=== PATIENT | female | born 1985 | race Caucasian/White ===

== ENCOUNTER 2020-12-27 20:15 | Emergency (ER) | payer OTHER, SELFPAY ==
[2020-12-27 20:18] VITALS: BP 146/76; PULSE 78; RESP 22; TEMP 36.2; O2SAT 100
--- NOTE | 2020-12-27 20:26 | PC.NURSE ---
Pt refused blood draw in triage
--- NOTE | 2020-12-27 20:40 | PC.NURSE ---
Pt up to desk stating she can't wait any longer and she is going to try [facility].
[2020-12-27 20:56] LABS: Add Urine Microscopic? YES; Appearance Urine Cloudy (Clear); Bilirubin Urine 1+ (Negative); Blood Urine 3+ (Negative); Calcium Oxalate Crystals Urine Present /hpf; Color Urine Amber (Yellow); Glucose Urine UA Negative (Negative); Ketones Urine Negative (Negative); Leukocyte Esterase Ur 1+ LEU/UL (Negative); Mucus Urine Few /lpf; Nitrate Urine Negative (Negative); Protein Urine 1+ mg/dL (Negative); RBC Urine 51-75 /hpf (0-2); Specific Grav Ur 1.026 (1.001-1.035); Squamous Epithelial Cell Urine Many /hpf (Few)
== END 2020-12-28 04:43 | disposition left against medical advice (07) ==
LOC: ANHED 20:43
PROVIDERS: Emergency Provider Emergency Medicine
DX: R10.9 Unspecified abdominal pain (principal)
CPT/HCPCS: 81001; 81025; 87086; 87088; 99199

== ENCOUNTER 2023-05-06 18:09 | Emergency (ER) | payer OTHER, SELFPAY ==
--- NOTE | ~2023-05-06 | CT_ITS ---
EXAMINATION: CT soft tissue neck wo con DATE: 05/06/2023 21:43 INDICATION: Left facial soft tissue swelling. Neck pain. TECHNIQUE: Computed tomography (CT) of the facial bones and maxillofacial region was performed with 1 00 CC Omnipaque 350 intravenous contrast. Automated exposure control and iterative reconstruction kami hnique were employed. Exam dose: 509.60 mGy-cm total exam DLP. COMPARISON: None. FINDINGS: There is asymmetric soft tissue swelling of the left parotid gland, with overlying fascial soft tissue thickening and fat stranding, suggesting left parotiditis. No discrete parotid or submand ibular mass lesions are noted. No sialolithiasis is noted. The right parotid gland and the bilateral submandibular glands are unremarkable. Normal size and homogeneous density of the thyroid gland. The orbital contents appear symmetric and normal. No facial fracture or bone destruction. The frontozygomatic sutures, zygomatic arches, maxillary and sphenoid bones as well as nasal bones and mandible appear intact. The paranasal sinuses and mastoid air cells are normally developed and aerated. No fracture or bone d estruction of the included cranial vault. No cervical spine fracture or dislocation or locked facet or prevertebral soft tissue swelling. There are shotty bilateral posterior triangle lymph nodes. Bilateral patchy groundglass pulmonary infiltrates or atelectasis. IMPRESSION: Left parotiditis with surrounding fat infiltration and fascial thickening Patchy bilateral groundglass pulmonary infiltrates or atelectasis Reviewed, dictated and finalized at [facility] Reviewed, dictated and finalized at [facility] [employer] IMPRESSION: Left parotiditis with surrounding fat infiltration and fascial thi ckening Patchy bilateral groundglass pulmonary infiltrates or atelectasis
[2023-05-06 18:10] VITALS: PULSE 93; RESP 17; TEMP 37.3; O2SAT 100
--- NOTE | 2023-05-06 18:24 | PC.NURSE ---
Pt declined BP reading in triage due to I get panic attacks with the blood pressure checks.
--- NOTE | 2023-05-06 20:12 | ED.DENTAL ---
HPI - Dental/Oral General Chief complaint: Dental/Oral Stated complaint: facial swelling Time Seen by Provider: 05/06/23 19:07 Source: patient Mode of arrival: ambulatory Limitations: no limitations History of Present Illness HPI Narrative: This is a 37 year old female that presents to the ER for left sided facial swelling. Ongoing today. Reports worsening swelling and discomfort. No injuries. Denies any other associated symptoms. Denies fever, dentalgia, sore throat, or otalgia. Related Data Allergies Allergy/AdvReac Type Severity Reaction Status Date / Time adhesive tape Allergy Rash Verified 05/06/23 18:12 Review of Systems Review of Systems: CONSTITUTIONAL: Denies fever ENT: Denies rhinorrhea, congestion, sore throat, or otalgia. All systems reviewed & are unremarkable except as noted in HPI and below PMFSH Past Medical History Medical History (Updated 05/06/23 @ 23:59 by Maira Bonds PA-C) No active medical problems Social History Social History (Updated 05/06/23 @ 20:15 by Maira Bonds PA-C) Smoking status: Never smoker Exam Narrative: GENERAL: Well-appearing, well-nourished, and in no acute distress. HEAD: Normocephalic, atraumatic. EYES: EOMI. ENT: Nares clear, no rhinorrhea or epistaxis. Mucous membranes moist. Oropharynx without tonsillar hypertrophy exudate or other lesions. Bilateral TMs pearly pierson non-bulging NECK: Supple. Left sided facial swelling surrounding the parotid gland. No erythema CHEST: No respiratory distress. HEART: Regular rate EXTREMITIES: Normal range of motion. No edema. SKIN: Warm, dry, no rash. NEURO: No focal deficits. Alert and oriented x3. PSYCH: Normal mood and affect Course Course Emergency Course: Patient updated on her workup and agrees with plan of care Vital Signs Vital signs: Vital Signs Temperature 99.1 F 05/06/23 18:10 Pulse Rate 93 05/06/23 18:10 Respiratory Rate 17 05/06/23 18:10 Pulse Oximetry 100 05/06/23 18:10 Oxygen Delivery Room Air 05/06/23 18:10 Temperature 99.1 F 05/06/23 18:10 Pulse Rate 93 05/06/23 18:10 Respiratory Rate 17 05/06/23 18:10 Pulse Oximetry 100 05/06/23 18:10 Oxygen Delivery Room Air 05/06/23 18:10 MDM - Dental/Oral MDM Narrative Medical decision making narrative: Patient presents to the emergency department for left-sided facial swelling noted since this morning. She is afebrile and nontoxic appearing. CBC with leukocytosis to 15.6. Inflammatory markers are not elevated. CT soft tissue neck shows findings consistent for parotitis. Patient will be started on oral antibiotics. She is to follow up with PCP. She was given warnings to return to the ER Patient refused for her blood pressure to be taken or to have an IV during her stay in the emergency department. She was made aware of my limitations due to her refusal Differential Diagnosis Differential diagnosis: Likely toothache, dental abscess and other (parotitis) Lab Data Attestation: I reviewed the patient's lab results. 05/06/23 20:24 05/06/23 20:24 Labs: Lab Results 05/06/23 Range/Units 20:24 WBC 15.6 H (4.5-10.0) K/mm3 RBC 4.45 (4.2-5.4) M/mm3 Hgb 13.1 (12.0-15.0) g/dL Hct 40.0 (37.0-47.0) % MCV 89.9 (80-100) fl MCH 29.4 (26-34) pg MCHC 32.8 (32-36) g/dl RDW 12.1 (11.5-14.5) % Plt Count 308 (150-375) k/mm3 MPV 10.4 (7.4-10.4) fl Immature Gran % (Auto) 0.4 (0-0.5) % Neut % (Auto) 81.4 H (45.5-73.1) % Lymph % (Auto) 13.0 L (18.3-44.2) % [place] % (Auto) 4.7 (2.6-8.5) % Eos % (Auto) 0.3 (0-4.4) % Baso % (Auto) 0.2 (0.2-1.2) % Lymph # (Auto) 2.03 (0.9-3.2) K/mm3 [place] # (Auto) 0.7 H (0.1-0.6) K/mm3 Eos # (Auto) 0.1 (0-0.3) K/mm3 Baso # (Auto) 0.0 (0.0-0.1) K/mm3 Abs Immat Gran (auto) 0.06 H (0.00-0.031) K/mm3 Absolute Neuts (auto) 12.7 H (1.3-6.7) K/mm3 Absolute Nucleated RBC 0.0 (0.0-0.012) K/mm3 Nucl
[2023-05-06 20:42] LABS: Basophils Percent Auto 0.2 % (0.2-1.2); Eosinophils Absolute Auto 0.1 K/mm3 (0-0.3); Eosinophils Percent Auto 0.3 % (0-4.4); Hemoglobin 13.1 g/dL (12.0-15.0); Immature Granulocyte Absolute 0.06 K/mm3 (0.00-0.031); Immature Granulocyte Percent A 0.4 % (0-0.5); Lymphocytes Absolute Auto 2.03 K/mm3 (0.9-3.2); Mean Corpuscular HGB Conc 32.8 g/dl (32-36); Mean Corpuscular Hemoglobin 29.4 pg (26-34); Mean Corpuscular Volume 89.9 fl (80-100); Mean Platelet Volume 10.4 fl (7.4-10.4); Monocytes Absolute Auto 0.7 K/mm3 (0.1-0.6); Monocytes Percent Auto 4.7 % (2.6-8.5); Neutrophils Absolute Auto 12.7 K/mm3 (1.3-6.7); Neutrophils Percent Auto 81.4 % (45.5-73.1); Platelet Count Result 308 k/mm3 (150-375); Red Blood Count 4.45 M/mm3 (4.2-5.4); Red Cell Distribution Width 12.1 % (11.5-14.5); White Blood Count 15.6 K/mm3 (4.5-10.0)
[2023-05-06 20:45] LABS: Anion Gap 10 mmol/L (8-16); Blood Urea Nitrogen 8 mg/dL (7-17); CRP < 0.5 mg/dL (<1.0); Calcium 9.5 mg/dL (8.4-10.2); Carbon Dioxide 24 mmol/L (22-30); Chloride 105 mmol/L (98-107); Estimated CRCL calculation 144 ml/min; Estimated Glomerular Filt Rate > 60; Glucose 104 mg/dL (65-110); Potassium 3.9 mmol/L (3.4-5.0); Sodium 139 mmol/L (137-145)
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
[2023-05-06 21:13] LABS: Erythrocyte Sedimentation Rate 18 mm/hr (0-20)
[2023-05-06] MEDS: IBUPROFEN 600 MG TABLET PO (21:25)
[2023-05-07] MEDS: AMOXICILLIN/CLAVULANATE K 875-125 MG TAB 1 TABLET PO (00:20)
== END 2023-05-07 00:22 | disposition home or self-care (01) ==
PROVIDERS: Emergency Provider Physician Assistant
DX: K11.21 Acute sialoadenitis (principal)
CPT/HCPCS: 36415; 70490; 80048; 81025; 85025; 85652; 86140; 99284; A9270